=== PATIENT | female | born 1955 | race Caucasian/White ===

== ENCOUNTER 2019-11-06 14:53 | Outpatient (CLI) | payer OTHER ==
--- NOTE | 2019-11-06 16:11 | Mammography Report ---
Reason: ROUTINE MAMMO Procedure Date: 11/06/2019 Accession Number: [id number] / [id number] Procedure: MGN - Screening Mammo w/Danny CPT Code: Final Report FULL RESULT: EXAM: Screening Mammo w/Danny DATE: 11/06/2019 3:19 PM CLINICAL HISTORY: Screening encounter. TECHNIQUE: (B) - Bilateral CC, laterally exaggerated CC, MLO views were obtained. COMPARISON: 10/25/2014 and 03/04/2010. PARENCHYMAL PATTERN: (A) - The breast(s) demonstrate(s) scattered fibroglandular densities. FINDINGS: There are no suspicious masses, calcifications, or areas of distortion. IMPRESSION: Negative examination. BI-RADS category 1. RECOMMENDATION: (ANNUAL) - Recommend routine annual screening mammography. BI-RADS CATEGORY: (1) - Negative. STANDARD QUALIFYING STATEMENTS: 1. This examination was not reviewed with the aid of Computer-Aided Detection (CAD). 2. A negative or benign imaging report should not preclude biopsy if clinically suspicious findings are present. 3. Dense breasts may obscure an underlying neoplasm. 4. This examination was reviewed with the aid of 3D breast imaging (tomosynthesis).
== END 2019-11-06 14:54 | disposition home or self-care (01) ==
LOC: DI.N 14:53
PROVIDERS: ATTEND Physician Assistant Medical
DX: Z12.31 Encounter for screening mammogram for malignant neoplasm of breast (principal)
CPT/HCPCS: 77063; 77067

== ENCOUNTER 2020-09-23 07:32 | Outpatient (CLI) | payer OTHER ==
[2020-09-23 13:29] LABS: BASOPHILS % (AUTO) 0.9 %; EOSINOPHILS # (AUTO) 0.1 10^3/uL (0.0-0.7); EOSINOPHILS % (AUTO) 2.8 %; HGB - HEMOGLOBIN 13.2 g/dL (12.0-16.0); LYMPHOCYTES # (AUTO) 1.5 10^3/uL (1.5-3.5); LYMPHOCYTES % (AUTO) 34.6 %; MEAN CORPUSCULAR HEMOGLOBIN 29.5 pg (27.0-31.0); MEAN CORPUSCULAR HGB CONC 32.3 g/dL (32.0-36.0); MEAN CORPUSCULAR VOLUME 91.3 fL (81.0-99.0); MEAN PLATELET VOLUME 9.6 fL (7.9-10.8); MONOCYTES # (AUTO) 0.5 10^3/uL (0.0-1.0); MONOCYTES % (AUTO) 10.6 %; NEUTROPHILS # (AUTO) 2.2 10^3/uL (1.5-6.6); NEUTROPHILS % (AUTO) 50.9 %; PLT - PLATELET COUNT 311 10^3/uL (130-450); RED BLOOD COUNT 4.48 10^6/uL (4.20-5.40); WHITE BLOOD COUNT 4.4 x10^3/uL (4.8-10.8)
[2020-09-23 13:35] LABS: ALBUMIN 4.1 g/dL (3.2-5.5); ALBUMIN/GLOBULIN RATIO 1.5 (1.0-2.2); ALKALINE PHOSPHATASE 85 IU/L (42-121); ALT ALANINE AMINOTRANSFERASE 19 IU/L (10-60); AST ASPARTATE AMINOTRANSFERASE 22 IU/L (10-42); BILIRUBIN,TOTAL 0.7 mg/dL (0.2-1.0); BUN - BLOOD UREA NITROGEN 16 mg/dL (6-20); CALCIUM 9.2 mg/dL (8.5-10.3); CARBON DIOXIDE - CO2 26 mmol/L (21-32); CHLORIDE 101 mmol/L (101-111); CHOL/HDL RATIO 3.9 (<4.4); CHOLESTEROL 271 mg/dL; CREATININE 0.7 mg/dL (0.4-1.0); GLUCOSE 104 mg/dL (70-100); HDL CHOLESTEROL 70 mg/dL; LDL CHOLESTEROL,CALCULATED 185 mg/dL; LDL/HDL RATIO 2.6 (<4.4); TOTAL PROTEIN 6.8 g/dL (6.7-8.2); VLDL CHOLESTEROL 16 mg/dL
== END 2020-09-23 23:59 | disposition home or self-care (01) ==
LOC: LAB.WCP 07:32
PROVIDERS: ATTEND Nurse Practitioner
DX: Z00.00 Encounter for general adult medical examination without abnormal findings (principal)
CPT/HCPCS: 36415; 80053; 80061; 83721; 84443; 85025

== ENCOUNTER 2020-12-25 15:12 | Outpatient (CLI) | payer OTHER ==
--- NOTE | 2020-12-26 09:37 | Mammography Report ---
BILATERAL DIGITAL SCREENING MAMMOGRAM 3D/2D: 12/25/2020 CLINICAL: Routine screening. Comparison is made to exams dated: 11/06/2019 mammogram, 11/11/2014 ultrasound, 11/11/2014 mammogram, 10/25 mammogram, and 03/04/2010 mammogram - [facility]. The tissue of both breasts is predominantly fatty. No significant masses, calcifications, or other findings are seen in either breast. There has been no significant interval change. IMPRESSION: NEGATIVE There is no mammographic evidence of malignancy. A 1 year screening mammogram is recommended. This exam was interpreted at Station ID: [id number]. NOTE: For mammograms, a report in lay terms will be sent to the patient. Approximately 15% of breast malignancies will not be visualized mammographically. In the management of a palpable breast mass, a negative mammogram must not discourage biopsy of a clinically suspicious lesion. Electronically Signed By: Jairo Salguero acr/penrad:12/25/2020 16:32:09 ACR BI-RADS Category 1: Negative 3341F PARENCHYMAL PATTERN: (F) - The breast(s) demonstrate(s) diffuse fatty replacement. BI-RADS CATEGORY: (1) - 1 RECOMMENDATION: (ANNUAL) - Recommend routine annual screening mammography. [id number] 1 year screening LATERALITY: (B)
== END 2020-12-25 15:13 | disposition home or self-care (01) ==
LOC: DI.N 15:12
DX: Z12.31 Encounter for screening mammogram for malignant neoplasm of breast (principal)

== ENCOUNTER 2023-01-05 07:14 | Outpatient (CLI) | payer MEDICARE, OTHER ==
[2023-01-05 12:22] LABS: HCT - HEMATOCRIT 40.8 % (37.0-47.0); HGB - HEMOGLOBIN 13.2 g/dL (12.0-16.0); MEAN CORPUSCULAR HEMOGLOBIN 29.2 pg (27.0-31.0); MEAN CORPUSCULAR HGB CONC 32.4 g/dL (32.0-36.0); MEAN CORPUSCULAR VOLUME 90.3 fL (81.0-99.0); MEAN PLATELET VOLUME 9.5 fL (7.9-10.8); RED BLOOD COUNT 4.52 10^6/uL (4.20-5.40); RED CELL DISTRIBUTION WIDTH 12.9 % (12.0-15.0); WHITE BLOOD COUNT 4.6 x10^3/uL (4.8-10.8)
[2023-01-05 12:40] LABS: CRP - C-REACTIVE PROTEIN 2.1 mg/dL (0-1.0)
[2023-01-05 14:31] LABS: RHEUMATOID FACTOR NEGATIVE (Negative)
[2023-01-06 20:08] LABS: ANTI-DNA (DS) AB QN <1 IU/mL (0-9); CENTROMERE B ANTIBODIES <0.2 AI (0.0-0.9); CHROMATIN ANTIBODIES <0.2 AI (0.0-0.9); JO-1 AB <0.2 AI (0.0-0.9); RIBOSOMAL P ANTIBODIES <0.2 AI (0.0-0.9); RNP ANTIBODIES <0.2 AI (0.0-0.9); SCLERODERMA-70 ANTIBODIES <0.2 AI (0.0-0.9); SJOGREN'S ANTI-SS-A <0.2 AI (0.0-0.9); SJOGREN'S ANTI-SS-B <0.2 AI (0.0-0.9); SMITH ANTIBODIES <0.2 AI (0.0-0.9); SMITH/RNP ANTIBODIES <0.2 AI (0.0-0.9)
[2023-01-07 18:08] LABS: CYCLIC CITRULLINATED PEP IGG/A 198 units (0-19)
== END 2023-01-05 07:15 | disposition home or self-care (01) ==
LOC: LAB.N 07:14
PROVIDERS: ATTEND Nurse Practitioner
DX: M79.641 Pain in right hand (principal)
CPT/HCPCS: 36415; 83516; 84550; 85027; 85651; 86140; 86200; 86225; 86235; 86430

== ENCOUNTER 2023-02-10 13:43 | Outpatient (CLI) | payer MEDICARE, OTHER ==
--- NOTE | 2023-02-10 19:12 | MRI Report ---
PROCEDURE: CERVICAL SPINE WO INDICATIONS: PARESTHESIA TECHNIQUE: Noncontrast sagittal T1 spin echo and T2 fast spin echo, sagittal STIR, foraminal oblique sagittal T2 fast spin echo, and axial gradient echo or T2 fast spin echo through the cervical spine. COMPARISON: None. FINDINGS: Image quality: Excellent. Alignment and Curvature: There is overall straightening of the normal cervical lordosis. No signifi cant AP alignment abnormality can be seen. Bone Marrow: Marrow demonstrates normal overall signal. Spinal Cord: Visualized spinal cord has normal size and signal. No cerebellar tonsillar herniation. Paraspinous Soft Tissues: No paravertebral masses. Prevertebral soft tissues are normal in thicknes s. C2-C3: No significant abnormality is seen. C3-C4: The disc height is well-preserved. There is loss of disc signal seen. Mild to moderate disc bulge is seen, which is eccentric to the right. Moderate facet hypertrophy is seen. There is moderat e to severe bilateral neuroforaminal narrowing seen. Mild to moderate central canal narrowing is seen , with mild associated mass effect upon the ventral spinal cord. C4-C5: The disc height is well-preserved. There is loss of disc signal seen. Moderate disc osteophy te complex is seen. Moderate facet hypertrophy is seen. There is moderate to severe right-sided and at least moderate left-sided neuroforaminal narrowing. No central canal narrowing is seen. C5-C6: The disc height is well-preserved. There is loss of disc signal seen. Mild to moderate disc o steophyte complex is seen, which is eccentric to the right. Mild to moderate facet hypertrophy is see n. There is at least moderate right-sided and moderate left-sided neuroforaminal narrowing. Mild to m oderate central canal narrowing is seen. Associated mass effect is seen upon the ventral spinal cord . C6-C7: The disc height is well-preserved. There is loss of disc signal seen. Moderate disc osteophyt e complex is seen, which is eccentric to the right. Mild to moderate right-sided and mild left-sided facet hypertrophy is seen. There is at least moderate right-sided and mild left-sided neuroforaminal narrowing. Mild central canal narrowing is seen. C7-T1: The disc height is well-preserved. There is loss of disc signal seen. Mild to moderate disc o steophyte complex is seen. Moderate facet hypertrophy is seen. There is moderate left-sided and mild right-sided neuroforaminal narrowing. Mild central canal narrowing is seen. IMPRESSION: Multiple levels of cervical spine degenerative change are seen, which are overall worst at C4-C5. Reviewed by: Benjamin Toure MD on 02/10/2023 6:11 PM LIVIER Approved by: Benjamin Toure MD on 02/10/2023 6:11 PM LIVIER Station ID: [id number]
== END 2023-02-10 13:44 | disposition home or self-care (01) ==
LOC: DI 13:43
PROVIDERS: ATTEND Nurse Practitioner
DX: M50.31 Other cervical disc degeneration, high cervical region (principal); M48.02 Spinal stenosis, cervical region; M47.812 Spondylosis without myelopathy or radiculopathy, cervical region

== ENCOUNTER 2023-02-16 13:34 | Outpatient (CLI) | payer MEDICARE, OTHER ==
--- NOTE | 2023-02-16 15:28 | XRAY Report ---
PROCEDURE: Cervical Spine Complete INDICATIONS: NECK PAIN, JOINT PAIN, RHEUMATOID ARTHRITIS TECHNIQUE: 6 views of the cervical spine acquired. COMPARISON: MRI 02/10/2023 FINDINGS: Bones: No fractures or dislocations to the T1 level. Oblique images demonstrate moderate to severe right-sided neural foraminal narrowing at C3-4, C4-5, and to a lesser extent C5-6, and mild foraminal narrowing on the left at C4-5. There is facet hypertrophy at all levels. Lateral masses of C1 are no rmally aligned on C2. There is trace anterolisthesis C4-5 and C5-6. Soft tissues: No prevertebral soft tissue swelling. IMPRESSION: 1. Multilevel facet arthropathy causes multilevel neural foraminal narrowing on the right primarily. 2. Trace anterolisthesis as described, otherwise normal cervical spine. Reviewed by: Hiral Stephens MD on 02/16/2023 3:26 PM PDT Approved by: Hiral Stephens MD on 02/16/2023 3:26 PM PDT Station ID: [id number]
--- NOTE | 2023-02-16 15:58 | XRAY Report ---
PROCEDURE: Hand 2 View BILAT INDICATIONS: NECK PAIN, JOINT PAIN, RHEUMATOID ARTHRITIS TECHNIQUE: 2 views of the hand(s) acquired. COMPARISON: None. FINDINGS: Bones: No fractures or dislocations. No suspicious bony lesions. Minimal mild scattered appearanc e of IP degenerative narrowing. No definitive erosions are identified. Soft tissues: No suspicious soft tissue calcifications or masses. IMPRESSION: Minimal scattered early arthritic change. Reviewed by: Agnieszka Alonso MD on 02/16/2023 3:57 PM PDT Approved by: Agnieszka Alonso MD on 02/16/2023 3:57 PM PDT Station ID: [id number]
--- NOTE | 2023-02-16 16:01 | XRAY Report ---
PROCEDURE: Foot 2 View BILAT INDICATIONS: NECK PAIN, JOINT PAIN, RHEUMATOID ARTHRITIS TECHNIQUE: 2 views of the foot were acquired. COMPARISON: None. FINDINGS: Bones: No fractures or dislocations. No suspicious bony lesions. Minimal scattered IP degenerativ e narrowing. No erosions. No visualized particular osteophytes appear Soft tissues: No suspicious soft tissue calcifications or masses. IMPRESSION: Minimal IP degenerative narrowing. Reviewed by: Agnieszka Alonso MD on 02/16/2023 3:59 PM PDT Approved by: Agnieszka Alonso MD on 02/16/2023 3:59 PM PDT Station ID: [id number]
== END 2023-02-16 13:35 | disposition home or self-care (01) ==
LOC: DI.N 13:34
PROVIDERS: ATTEND Internal Medicine Rheumatology
DX: M06.9 Rheumatoid arthritis, unspecified (principal); M19.072 Primary osteoarthritis, left ankle and foot; M19.071 Primary osteoarthritis, right ankle and foot; M19.042 Primary osteoarthritis, left hand; M19.041 Primary osteoarthritis, right hand; M47.812 Spondylosis without myelopathy or radiculopathy, cervical region; M48.02 Spinal stenosis, cervical region; M43.12 Spondylolisthesis, cervical region